=== PATIENT | female | born 1960 | race African-American/Black ===

== ENCOUNTER 2016-09-17 01:24 | Emergency (ER) | payer OTHER ==
[~2016-09-17] VITALS: Ht 154.9 cm; Wt 76.2 kg
[2016-09-17 02:17] LABS: HEMATOCRIT 45.5 % (36.0-46.0); MCH 30.7 PG (29.0-34.0); MCHC 34.5 G/DL (30.0-36.0); MEAN PLAT.VOLUME 9.6 uM^3 (9.5-12.4); PLATELET COUNT 306 K/uL (156-360); RBC DIS.WIDTH-CV 13.1 % (11.8-14.6); RED BLOOD COUNT 5.11 M/uL (3.80-5.20); WHITE BLOOD COUNT 10.6 K/uL (4.1-10.2)
[2016-09-17 02:22] LABS: CHLORIDE 101 mEq/L (99-109); POTASSIUM 3.6 mEq/L (3.7-5.4); SODIUM 137 mEq/L (136-147)
[2016-09-17 02:24] LABS: GLUCOSE 195 mg/dL (70-99)
[2016-09-17 02:26] LABS: ANION GAP 16 MEQ/L (2-14); TOTAL BILIRUBIN 0.6 mg/dL (0.0-1.0)
[2016-09-17 02:28] LABS: ALKALINE PHOSPHATASE 101 IU/L (3-129)
[2016-09-17 02:29] LABS: UREA NITROGEN (BUN) 21 mg/dL (9-23)
[2016-09-17 02:31] LABS: LIPASE 21 U/L (1.0-51.0)
[2016-09-17 02:35] LABS: GFR ESTIMATE (CALCULATED) 49 mL/min/; TROP-I INTERPRETATION NEGATIVE; TROPONIN-I < 0.01 ng/mL (0.0-0.30)
[2016-09-17 02:36] LABS: ADD MIUA? YES; BILIRUBIN NEGATIVE; BLOOD NEGATIVE; COLOR YELLOW ((YELLOW)); GLUCOSE (STRIP) NEGATIVE; KETONES 20; LEUKOCYTES NEGATIVE; NITRITE NEGATIVE; PROTEIN (STRIP) 30; SPECIFIC GRAVITY 1.014 (1.000-1.030); UROBILINOGEN 0.2 MG/DL (0.2-1.0)
[2016-09-17 02:42] LABS: BACTERIA RARE /HPF; EPITHELIAL CELLS RARE /HPF; MUCUS NONE SEEN /LPF; RED BLOOD CELLS 0-5 /HPF (0-5); UCUL ADDED? NO; WHITE BLOOD CELLS 0-5 /HPF (0-5)
[2016-09-17] MEDS ORDERED: CARAFATE100 MG/ML PO (05:44)
[2016-09-17] MEDS ORDERED: ZOFRAN4 MG PO (05:44)
[2016-09-17 05:55] VITALS: BP 108/61
== END 2016-09-17 06:02 | disposition home or self-care (01) ==
LOC: EME 01:24
PROVIDERS: Emergency Medicine
DX: R10.13 Epigastric pain (principal); R10.12 Left upper quadrant pain; K29.70 Gastritis, unspecified, without bleeding; R11.0 Nausea; F17.200 Nicotine dependence, unspecified, uncomplicated
CPT/HCPCS: 74177; 80053; 81003; 83605; 83690; 84484; 85027; 93005; 99281; 99285; C9113; J2270; J2405; J7030